=== PATIENT | female | born 1985 | race Two or more races ===

== ENCOUNTER 2022-06-23 21:10 | Emergency (ER) | payer MEDICAID, OTHER ==
[~2022-06-23] VITALS: Ht 162.6 cm; Wt 54.5 kg
[2022-06-23] MEDS ORDERED: LORazepam 2MG/ML-1ML VIAL IM ONE (23:45)
[2022-06-23 23:57] LABS: Basophils # (auto) 0 10 ^3/uL (0-0.2); Eosinophils # (auto) 0.1 10 ^3/uL (0-0.8); Eosinophils % (auto) 2.2 % (0.0-7.0); Lymphocytes # (auto) 1.6 10 ^3/uL (0.4-5.4); Monocytes # (auto) 0.4 10 ^3/uL (0-1.3); Nucleated Red Blood Cells % 0.1 %; White Blood Cell 4.1 10^3/uL (4.4-10.8)
[2022-06-23 23:58] LABS: Basophils % (auto) 1.1 % (0.0-2.0); Hematocrit 24.8 % (36.0-46.0); Hemoglobin 7.8 g/dL (12.2-16.2); Lymphocytes % (auto) 38.2 % (10.0-50.0); Mean Corpuscular Hemoglobin 21.3 pg (28.0-32.0); Mean Corpuscular Hgb Conc. 31.5 g/dL (32.0-36.0); Mean Corpuscular Volume 67.7 fL (80.0-100.0); Monocytes % (auto) 10.6 % (0.0-12.0); Neutrophils % (auto) 47.9 % (37.0-80.0); Red Blood Cells 3.67 10^6/uL (4.0-5.20); Red Cell Distribution Width 19.2 % (11.8-14.3)
[2022-06-24 00:14] LABS: Albumin 2.8 g/dL (3.4-5.0); Anion Gap 6 (5-15); BUN/Creatinine Ratio 16.4 (10.0-20.0); Blood Alcohol < 3.0 mg/dL (0-5); Blood Urea Nitrogen 11 mg/dL (7-18); Calcium 7.6 mg/dL (8.5-10.1); Carbon Dioxide 21 mmol/L (21-32); Chloride 114 mmol/L (98-107); GFR African American 129 mL/min; GFR Non-African American 106 mL/min; Glucose 110 mg/dL (74-106); Potassium 3.4 mmol/L (3.5-5.1); Sodium 141 mmol/L (136-145)
[2022-06-24 00:16] LABS: Acetaminophen < 2.0 ug/mL (10-30); Salicylate < 1.7 mg/dL (2.8-20.0)
[2022-06-24 00:17] LABS: Alanine Aminotransferase 12 U/L (13-56); Alkaline Phosphatase 278 U/L (45-117); Aspartate Aminotransferase 12 U/L (15-37); Bilirubin, Total 0.1 mg/dL (0.2-1.0); Total Protein 6.1 g/dL (6.4-8.2)
[2022-06-24 13:53] LABS: Urine Bacteria NONE SEEN /hpf (None Seen); Urine Blood Negative /uL (Negative); Urine Specific Gravity 1.018 (1.001-1.035); Urine WBC 3 /hpf (0 - 5)
[2022-06-24 14:11] LABS: Alcohol, Urine < 3.0 mg/dL (0-10); Barbiturate Scree,Urine NEGATIVE (NEGATIVE); Benzodiazephine Screen, Urine NEGATIVE (NEGATIVE); Cannabinoid Screen, Urine POSITIVE (NEGATIVE); Cocaine Screen, Urine NEGATIVE (NEGATIVE)
[2022-06-24 14:22] LABS: Amphetamine Screen, Urine POSITIVE (NEGATIVE); Opiate Scree,Urine NEGATIVE (NEGATIVE); Phencyclidine Screen, Urine NEGATIVE (NEGATIVE)
[2022-06-24] MEDS: QUEtiapine FUMARATE 100 MG TAB PO SCH (21:30)
[2022-06-24] MEDS: ONDANSETRON ODT 4 MG TAB PO ONE (23:30)
[2022-06-25] MEDS: ONDANSETRON ODT 4 MG TAB PO ONE (03:11)
[2022-06-25] MEDS ORDERED: METOCLOPRAMIDE HCL 5MG/ml INJ 2ml VIAL IV ONE (04:30)
[2022-06-25] MEDS ORDERED: PROMETHAZINE HCL 6.25 MG/5 ML ORAL SYRUP PO ONE ×2 (05:15→05:45)
[2022-06-25] MEDS: QUEtiapine FUMARATE 100 MG TAB PO SCH ×3 (05:58→22:24)
[2022-06-25] MEDS ORDERED: ONDANSETRON ODT 4 MG TAB PO ONE (11:30)
[2022-06-25] MEDS: LORazepam 0.5 MG TAB PO PRN ×2 (12:08→18:20)
[2022-06-25] MEDS ORDERED: QUEtiapine FUMARATE 100 MG TAB ONE (18:10)
[2022-06-25] MEDS ORDERED: LORazepam 0.5 MG TAB ONE (18:14)
[2022-06-25] MEDS ORDERED: traZODone HCL 50 MG TAB PO SCH (22:00)
[2022-06-26] MEDS ORDERED: DIPHENOXYLATE W/ATROPINE 2.5 MG TAB PO ONE (00:45)
[2022-06-26 01:00] VITALS: BP 103/55
[2022-06-26] MEDS: LORazepam 0.5 MG TAB PO PRN (01:58)
[2022-06-26] MEDS: QUEtiapine FUMARATE 100 MG TAB PO SCH (05:59)
== END 2022-06-26 23:10 | disposition left against medical advice (07) ==
LOC: ER 21:10 → EDBD 21:10 → ER 06-24 00:35
DX: R45.851 Suicidal ideations (principal); R41.82 Altered mental status, unspecified; F20.9 Schizophrenia, unspecified; F17.210 Nicotine dependence, cigarettes, uncomplicated; F15.10 Other stimulant abuse, uncomplicated; Z20.822 Contact with and (suspected) exposure to COVID-19; Z59.00 Homelessness unspecified
CPT/HCPCS: 36415; 70450; 71045; 80053; 80307; 80320; 80329; 81001; 84484; 85025; 87426; 96372